=== PATIENT | female | born 1960 | race Caucasian/White ===

== ENCOUNTER → 2020-12-14 | Outpatient (CLI) | payer MEDICARE, OTHER ==
[~2020-12-14] MED LIST: ATORVASTATIN CA20 MG PO; CETIRIZINE HCL10 MG PO; CILOSTAZOL50 MG PO; CLONAZEPAM1 MG PO; GABAPENTIN800 MG PO; HUMALOG100 UNIT/1 SC; HUMALOG100 UNIT/3 SC; HYDROCODON-ACE1 EAC2 PO; HYDROXYZINE HCL25 MG PO; LANTUS SOL100 UNIT/1 SC; LANTUS100 UNIT/1 SC; LEVOCETIRIZINE D5 MG PO; LIPITOR20 MG PO; LISINOPRIL30 MG PO; LISINOPRIL5 MG PO; LOPRESSOR 50 MG50 MG PO; LOPRESSOR50 MG PO; MIRTAZAPINE7.5 MG PO; NESINA25 MG PO; ONDANSETRON HCL8 MG PO; PANTOPRAZOLE SO40 MG PO; PROTONIX40 MG PO; VENTOLIN HFA 66.7 GM INH; VITAMIN D PO
== END ==
LOC: CT 10:43
DX: Z12.89 Encounter for screening for malignant neoplasm of other sites (principal); C34.12 Malignant neoplasm of upper lobe, left bronchus or lung
CPT/HCPCS: 71260; Q9963

== ENCOUNTER → 2021-01-13 | Outpatient (CLI) | payer MEDICARE, OTHER | LOC: MRI 12:45 | DX: C34.12 Malignant neoplasm of upper lobe, left bronchus or lung (principal); Z12.89 Encounter for screening for malignant neoplasm of other sites | CPT/HCPCS: 70553; A9577 ==